=== PATIENT | female | born 1985 | race Caucasian/White ===

== ENCOUNTER 2016-06-11 15:38 | Emergency (ER) | payer BC, OTHER ==
[2016-06-11 15:40] VITALS: BP 123/77; PULSE 101; RESP 16; TEMP 98.2; O2SAT 98
--- NOTE | 2016-06-11 17:32 | PD ---
HPI Chief Complaint: ENT Complaint Time Seen by Provider: 17:32 Travel History International Travel<30 days: No Contact w/Intl Traveler<30days: No Traveled to known affect area: No History of Present Illness HPI 30-year-old female presents to the ED for evaluation of 3 day history of sore throat, clear rhinorrhea, occasional nonproductive cough, subjective fevers. Patient denies ear pain, headache, chest pain, shortness of breath, abdominal pain, nausea or vomiting. She endorses several sick contacts at work. Denies chronic health problems, takes no daily medications. Allergic to penicillin. PFSH Past Medical History ?: Not : 1 Para: 1 Miscarriage: 0 : 0 Social History Alcohol Use: Yes (4 GLASSES OF LIQOUR ONCE EVERY 3 WEEKS) Tobacco Use: No Substance Use: No Allergies-Medications (Allergen,Severity, Reaction): Coded Allergies: Penicillin (Verified Allergy, Intermediate, Hives, 06/11/16) Reported Meds & Prescriptions Reported Meds & Active Scripts Active Azithromycin 250 Mg Tab 250 Mg PO DIRECTED Take 2 tabs (500 mg) on day 1 then 1 tab daily x 4 days. Review of Systems Except as stated in HPI: all other systems reviewed are Neg Physical Exam Narrative GENERAL: Well-nourished, well-developed SKIN: Warm and dry. HEAD: Normocephalic. Atraumatic. EYES: No scleral icterus. No injection or drainage. PERRLA. EOMI. ENT: Pearly calixto tympanic membranes bilaterally. Nasal mucosa is moist. Oropharynx with mild erythema, scattered white exudates. Tonsils 1+ bilaterally. Uvula midline. Floor of the mouth is soft. NECK: Supple, trachea midline. No JVD. Bilateral submandibular tender lymphadenopathy. CARDIOVASCULAR: Regular rate and rhythm without murmurs, gallops, or rubs. 2+ DP and radial pulses bilaterally. RESPIRATORY: Breath sounds clear and equal bilaterally. No accessory muscle use. GASTROINTESTINAL: Abdomen soft, non-tender, nondistended. + Bowel sounds MUSCULOSKELETAL: No cyanosis, or edema. The patient is ambulatory and moves extremities spontaneously. BACK: Nontender without obvious deformity. No CVA tenderness. Data Data Last Documented VS Vital Signs Date Time Temp Pulse Resp B/P Pulse Ox O2 Delivery O2 Flow Rate FiO2 06/11/16 15:40 98.2 101 16 123/77 98 Orders Group A Rapid Strep Screen (06/11/16 17:37) Azithromycin (Zithromax) (06/11/16 17:45) Strep Culture (Group A) (06/11/16 17:45) [facility] Medical Decision Making Medical Screen Exam Complete: Yes Emergency Medical Condition: Yes Differential Diagnosis Pharyngitis versus group A strep pharyngitis versus viral syndrome versus URI versus other Narrative Course 30-year-old female presents to the ED for evaluation of 3 day history of sore throat, clear rhinorrhea, occasional nonproductive cough, subjective fevers. Patient denies ear pain, headache, chest pain, shortness of breath, abdominal pain, nausea or vomiting. She endorses several sick contacts at work. Vitals reviewed. Physical exam reveals erythema and scattered exudates of the posterior oropharynx. Tonsils 1+ bilaterally. Tender bilateral submandibular lymphadenopathy. Physical exam is unremarkable. Rapid strep swab was obtained and is pending. Patient meets center criteria. We'll treat for strep pharyngitis. Patient is allergic to penicillin, we'll prescribe a Z-Toan. First dose administered in the ED. Patient is instructed take all medication as prescribed, continue with symptomatic treatment, follow-up with primary care or ENT. She indicated understanding of instructions, is amenable to plan of care. She is stable and discharged home. Diagnosis Primary Impression: Strep pharyngitis Referrals: Primary Care Physician Patient Instructions: General Instructions, Strep Throat (ED) Additional Instructions: Rest, hydrate. Continue taking Tylenol or ibuprofen as needed for fever. Take azithromycin as directed. Follow-up with an ear nose and throat doctor or your primary care provider next week. Return to the ED for any urgent or emergent medical condition. Med/Other Pt SpecificInfo: Prescription(s) given Scripts Azithromycin 250 Mg [id number] Mg PO DIRECTED #6 TAB Ref 0 Take 2 tabs (500 mg) on day 1 then 1 tab daily x 4 days. Prov:Kendra Cardona MD 06/11/16 Disposition: 01 DISCHARGE HOME Condition: Stable Candida Lilly Jun 11, 2016 17:32
[2016-06-11] MEDS ORDERED: AZIT250T3 PO (17:44)
[2016-06-11] MEDS ORDERED: AZITHROMYCIN 250 MG TAB PO ONE (17:45)
== END 2016-06-11 18:08 | disposition home or self-care (01) ==
LOC: NETRI 15:38
DX: J02.0 Streptococcal pharyngitis (principal); Z88.0 Allergy status to penicillin
CPT/HCPCS: 87081; 87880; 99283

== ENCOUNTER 2017-04-03 13:16 | Emergency (ER) | payer BC, MEDICAID ==
[~2017-04-03 13:16] MED LIST: AZIT250T3 PO
[2017-04-03 13:40] VITALS: BP 127/70; PULSE 104
--- NOTE | 2017-04-03 13:58 | PD ---
HPI Chief Complaint 28 weeks and 6 days Abdominal pain s/p hit by door Date Seen: Apr 03, 2017 Time Seen: 13:45 Travel History International Travel<30 Days: No Contact w/Intl Traveler<30Days: No Known Affected Area: No History of Present Illness HPI Pt is a 31 yo at 28 weeks and 6 days . Pt presents after being hit hard accidently in the abdomen by a door. Pt reports pain maximal in periumbilical area. Tender to touch, and worse with movement. Declines any analgesia. Active movements. No vaginal bleeding or leaking. Weeks Gestation: 28 Para: 3 : 5 History Past Medical History Medical History: Denies Significant Hx Obstetric History Obstetric History 3 prior term uncomplicated pregnancies, delivered vaginally. Past Surgical History Surgical History: No Previous Surgery Family History Family History: Negative Social History Alcohol Use: No Tobacco Use: No Substance Abuse: No Allergies-Medications (Allergen,Severity, Reaction): Coded Allergies: penicillin G (Unverified Allergy, Intermediate, Hives, 01/05/17) Home Meds Active Scripts Azithromycin (Azithromycin) 250 Mg Tab, 250 MG PO DIRECTED for Infection, #6 TAB 0 Refills Take 2 tabs (500 mg) on day 1 then 1 tab daily x 4 days. Prov:Kendra Cardona MD 06/11/16 Review of Systems Except as stated in HPI: all other systems reviewed are Neg Physical Exam Narrative GENERAL: Well-nourished, well-developed patient. SKIN: Warm and dry. HEAD: Normocephalic and atraumatic. EYES: No scleral icterus. No injection or drainage. ENT: No nasal drainage noted. Mucous membranes pink. Airway patent. NECK: Supple, trachea midline. No JVD. CARDIOVASCULAR: Regular rate and rhythm without murmurs, gallops, or rubs. RESPIRATORY: Breath sounds equal bilaterally. No accessory muscle use. BREASTS: Bilateral exam showed no masses , no retractions, no nipple discharge. ABDOMEN/GI: Abdomen soft, tender in periumbilical area, bowel sounds present, no rebound, no guarding Gravid to [36] weeks size Fundal Height: [36] GENITOURINARY: External Genitalia: intact and normal in appearance BUS glands: [-] Cervix: [-] Dilatation: [-] Effacement: [-] Station: [-] Presentation: [-] Membranes: [intact] Uterine Contractions: [none] FHT's: Category: [1] Baseline: [130s] Reactive: [-] Variability: [good] Decels: [none] EXTREMITIES: No cyanosis or edema. BACK: Nontender without obvious deformity. No CVA tenderness. NEUROLOGICAL: Awake and alert. Motor and sensory grossly within normal limits. Five out of 5 muscle strength in all muscle groups. Normal speech. Data Data Vital Signs Reviewed: Yes Orders Orders Vital Signs (Adult) .ON ADMISSION (04/03/17 13:41) ^ Labor Status (04/03/17 13:41) Diet Liquid (04/03/17 Lunch) Us Ob Limited (04/03/17 ) MDM Medical Record Reviewed: Yes Plan 30 yo at 28 weeks and 6 days, Presents with periumbilical abdominal pain after being hit on abdomen with a door. No uterine contractions. Abdomen is soft. Cat 1 FHR No vaginal bleeding. Will obtain limited OB ultrasound. Extended heart rate monitoring. FHR remains cat 1, no contractions. US is wnl, without any evidence of abruption. However there is size/date discrepancy. Measurements are symmetrical , current measurement is about 36 weeks. Pt has scheduled ultrasound with Dr Anaya on 04/08/2017 for uterine size/ date discrepancy. Diagnosis Diagnosis: Primary Impression: 28 weeks gestation of Additional Impressions: Blunt trauma of abdominal wall Abdominal pain affecting Uterine size-date discrepancy Disposition: 01 DISCHARGE HOME Condition: Good Lorenzo De Souza MD Apr 03, 2017 13:58
[2017-04-03 14:00] VITALS: RESP 18
[2017-04-03 14:30] VITALS: RESP 17
== END 2017-04-03 15:56 | disposition home or self-care (01) ==
LOC: HOBED 13:16
DX: O9A.213 Injury, poisoning and certain other consequences of external causes complicating pregnancy, third trimester (principal); S39.91XA Unspecified injury of abdomen, initial encounter; W22.8XXA Striking against or struck by other objects, initial encounter; O26.893 Other specified pregnancy related conditions, third trimester; R10.9 Unspecified abdominal pain; O26.843 Uterine size-date discrepancy, third trimester; Z3A.28 28 weeks gestation of pregnancy
CPT/HCPCS: 76816; 99284

== ENCOUNTER 2017-04-30 01:15 | Emergency (ER) | payer BC, MEDICAID ==
[2017-04-30 01:35] VITALS: BP 108/68; PULSE 103; RESP 18; TEMP 97.9
--- NOTE | 2017-04-30 01:46 | PD ---
HPI Chief Complaint ? ctx Date Seen: Apr 30, 2017 Time Seen: 01:35 Travel History International Travel<30 Days: No Contact w/Intl Traveler<30Days: No Known Affected Area: No History of Present Illness HPI Pt is a 31y/o @ 37.3wks. She has PNC with Dr. Anaya. She presents to the hospital for ctx. She states that they were one per hour and increased to 2 per hour. She came in because, "I aint gonna feel no pain". She denies LOF or VB. +FM. Weeks Gestation: 37 Para: 3 : 5 History Past Medical History Medical History: Denies Significant Hx Obstetric History Obstetric History x3 SAB x1 Past Surgical History Narrative Surgical wisdom teeth extraction Family History Family History: Negative Social History Alcohol Use: No Tobacco Use: No Substance Abuse: No Allergies-Medications (Allergen,Severity, Reaction): Coded Allergies: penicillin G (Unverified Allergy, Intermediate, Hives, 01/05/17) Home Meds Active Scripts Azithromycin (Azithromycin) 250 Mg Tab, 250 MG PO DIRECTED for Infection, #6 TAB 0 Refills Take 2 tabs (500 mg) on day 1 then 1 tab daily x 4 days. Prov:Kendra Cardona MD 06/11/16 Review of Systems Except as stated in HPI: all other systems reviewed are Neg Physical Exam Narrative General: well developed, well nourished, no acute distress HEENT: normocephalic atraumatic, extraocular movements intact, neck supple Abdomen: soft, gravid, nontender, nondistended Uterus: fundus term Extremities: full range of motion Skin: normal coloration, no rashes, no suspicious skin lesions noted Neurologic: cranial nerves 2-12 grossly intact, normal muscle tone, normal gait Psychiatric: normal mood and affect, appropriate FHTs: 130s, +accels no decels, moderate variability, reactive [place]: quiet Cvx: 2/70/-3 (was 2cm at office visit last week) Data Data Vital Signs Reviewed: Yes Orders Orders Vital Signs (Adult) .ON ADMISSION (04/30/17 01:34) ^ Labor Status (04/30/17 01:34) Urinalysis - C+S If Indicated (04/30/17 01:34) ^ Non Stress Test (04/30/17 01:34) MDM Plan 31y/o @ 37.3wks with ctx. -- toco without any ctx -- pt reports q30m -- FHTs cat 1 -- cvx 2cm (unchanged from clinic check 1wk ago) Dispo: stable for d/c home; pt counseled that ctx should be q5m lasting more than an hour to be concerning for labor Diagnosis Diagnosis: Primary Impression: 37 weeks gestation of Additional Impression: False labor after 37 weeks of gestation without delivery Patient Instructions: General Instructions Departure Forms: Tests/Procedures Soumya Aviles MD Apr 30, 2017 01:46
== END 2017-04-30 02:05 | disposition home or self-care (01) ==
LOC: HOBED 01:15
DX: O47.1 False labor at or after 37 completed weeks of gestation (principal); Z3A.37 37 weeks gestation of pregnancy; Z88.0 Allergy status to penicillin
CPT/HCPCS: 99283

== ENCOUNTER 2017-05-11 21:08 | Inpatient (IN) | payer BC, MEDICAID ==
[~2017-05-11] VITALS: Ht 172.7 cm; Wt 102.3 kg
[2017-05-11] VITALS (36 sets, daily range): BP systolic 98–134; BP diastolic 41–76; PULSE 96–148; RESP 16; TEMP 97.6
--- NOTE | 2017-05-11 21:38 | PD ---
HPI Chief Complaint Leaking of fluid Travel History International Travel<30 Days: No Contact w/Intl Traveler<30Days: No Known Affected Area: No History of Present Illness HPI 31-year-old , IUP at 39.0 care complicated by history of ventral hernia, remote history of chlamydia, obesity This patient presents complaining of a large gush of clear fluid at 8:50 PM tonight. She reports she's been leaking ever since. She reports some irregular contractions but these are not in any regular pattern and not painful. She reports good movement. She denies any vaginal bleeding. Weeks Gestation: 39 Para: 3 : 5 Miscarriage: 1 History Past Medical History Narrative Medical Obesity Obstetric History Obstetric History 013 3 SAB 1 Past Surgical History Surgical History: No Previous Surgery Family History Family History: Negative Social History Alcohol Use: No Tobacco Use: No Substance Abuse: No Allergies-Medications (Allergen,Severity, Reaction): Coded Allergies: penicillin G (Unverified Allergy, Intermediate, Hives, 01/05/17) Home Meds Active Scripts Azithromycin (Azithromycin) 250 Mg Tab, 250 MG PO DIRECTED for Infection, #6 TAB 0 Refills Take 2 tabs (500 mg) on day 1 then 1 tab daily x 4 days. Prov:Kendra Cardona MD 06/11/16 Review of Systems Except as stated in HPI: all other systems reviewed are Neg Physical Exam Narrative GENERAL: Well-nourished, well-developed patient. SKIN: Warm and dry. HEAD: Normocephalic and atraumatic. EYES: No scleral icterus. No injection or drainage. ENT: No nasal drainage noted. Mucous membranes pink. Airway patent. NECK: Supple, trachea midline. No JVD. CARDIOVASCULAR: Regular rate and rhythm without murmurs, gallops, or rubs. RESPIRATORY: Breath sounds equal bilaterally. No accessory muscle use. BREASTS: Bilateral exam showed no masses , no retractions, no nipple discharge. ABDOMEN/GI: Abdomen soft, non-tender, bowel sounds present, no rebound, no guarding Gravid GENITOURINARY: External Genitalia: intact and normal in appearance. Grossly normal BUS glands. No cervical or vaginal masses are noted. Patient is grossly ruptured. SVE 3-4, 80, -2, posterior FHT's: heart tones are in the 120s to 130s with moderate long-term variability, good accelerations, no decelerations. The category 1 heart rate tracing EXTREMITIES: No cyanosis or edema. BACK: Nontender without obvious deformity. No CVA tenderness. NEUROLOGICAL: Awake and alert. Motor and sensory grossly within normal limits. Five out of 5 muscle strength in all muscle groups. Normal speech. Psychiatric: Grossly normal memory and affect Musculoskeletal: Grossly normal range of motion, gait, muscle strength MDM Plan Assessment/plan: 1. IUP at 39.0 weeks 2. Rupture of membranes: No evidence of active labor at this time although patient is having contractions and is dilated to 3-[address] Desai. 3. GBS negative 4. well-being: Reassuring testing with reactive NST and category 1 heart rate tracing. We'll continue to monitor 5. Obesity 6. Remote history of chlamydia Judi Delgadillo MD May 11, 2017 21:38
[2017-05-11] MEDS ORDERED: LACTATED RINGER'S 1000 ML INJ 1,000 ML IV SCH (21:51)
[2017-05-11] MEDS ORDERED: LACTATED RINGER'S 1000 ML INJ 1,000 ML IV PRN (21:51)
[2017-05-11] MEDS ORDERED: LIDOCAINE HCL 1% 50 ML VIAL I-DERMAL PRN (22:00)
[2017-05-11] MEDS ORDERED: LIDOCAINE HCL 1% 50 ML VIAL INFIL PRN (22:00)
[2017-05-11] MEDS ORDERED: MINERAL OIL 10 ML VIAL TOPICAL PRN (22:00)
[2017-05-11] MEDS ORDERED: SODIUM CHLORID 0.9% 500 ML INJ 500 ML IV PRN (22:00)
[2017-05-11] MEDS ORDERED: CITRIC ACID-SODIUM CITRATE LIQ 30 ML UDC PO SCH (22:00)
[2017-05-11] MEDS ORDERED: OXYTOCIN 30 UNITS-500ML PREMIX 500 ML IV ONE (22:00)
[2017-05-11] MEDS ORDERED: SODIUM CHLOR 0.9% 1000 ML INJ 1,000 ML IV PRN (22:11)
[2017-05-11 22:29] LABS: BACTERIA, URINE RARE /hpf; BLOOD, URINE NEG (NEG); COMMENT (UR) CULT NOT INDICATED; CULTURE IF INDICATED CULT NOT INDICATED; GLUCOSE,URINE NEG (NEG); KETONE, URINE NEG (NEG); MUCUS URINE FEW /lpf (OCC); NITRITE,URINE NEG (NEG); SQUAMOUS EPITHELIAL CELL URINE 20 /hpf (0-5); URINE COLOR YELLOW (YELLW/STRAW)
[2017-05-11 22:30] LABS: AUTOMATED NEUTROPHIL # 12.5 TH/MM3 (1.8-7.7); BASOPHIL % 0.2 % (0.0-2.0); EOSINOPHIL # 0.1 TH/MM3 (0-0.4); EOSINOPHIL % 0.9 % (0.0-4.0); HEMATOCRIT 32.9 % (35.0-46.0); HEMO FLAGS DIFF FINAL; LYMPH % 13.4 % (9.0-44.0); LYMPHOCYTE # 2.1 TH/MM3 (1.0-4.8); MEAN CELL VOLUME 86.3 FL (80.0-100.0); MEAN CORPUSCULAR HEMOGLOBIN 28.7 PG (27.0-34.0); MEAN CORPUSCULAR HGB CONC 33.2 % (32.0-36.0); MONO % 6.4 % (0.0-8.0); NEUT % 79.1 % (16.0-70.0); PLATELET COUNT 207 TH/MM3 (150-450); RED BLOOD COUNT 3.81 MIL/MM3 (4.00-5.30); RED CELL DISTRIBUTION WIDTH 14.2 % (11.6-17.2); WHITE BLOOD COUNT 15.8 TH/MM3 (4.0-11.0)
[2017-05-11] MEDS ORDERED: OXYTOCIN 30 UNITS-500ML PREMIX 500 ML IV SCH (22:30)
[2017-05-11] MEDS ORDERED: fentaNYL 2MCG-BUPIV 0.125% INJ 100 ML ONE (23:10)
[2017-05-11] MEDS ORDERED: ePHEDrine/NS 25 MG/5 ML SYRINGE ONE (23:10)
[2017-05-12] VITALS (84 sets, daily range): BP systolic 99–126; BP diastolic 52–96; PULSE 54–191; RESP 14–20; TEMP 97.6–99.8
[2017-05-12] MEDS ORDERED: fentaNYL 2MCG-BUPIV 0.125% 100 ML EPIDURAL SCH (00:15)
[2017-05-12] MEDS ORDERED: NO SYSTEM NARCOTICS PRN (00:15)
[2017-05-12] MEDS ORDERED: ePHEDrine/NS 25 MG/5 ML SYRINGE IV PUSH PRN (00:15)
[2017-05-12] MEDS ORDERED: DO NOT ADMINISTER ANTICOAGULANTS PRN (00:15)
[2017-05-12] MEDS ORDERED: MISOPROSTOL 100 MCG TAB ONE (05:38)
--- NOTE | 2017-05-12 05:45 | PD.OB.DELI ---
Weeks gestation: 39 Pt started active labor?: Yes Medical induction of labor?: No Artificial rupture of membrane: No Anesthesia: Epidural Episiotomy: None Vaginal Delivery: Normal Presentation: Occiput posterior Nuchal Cord: Other (body cord delivered through) Delayed cord clamping (45 sec): Yes Infant: Male, Single Delivery date: May 12, 2017 Delivery time: 05:31 One Minute : 9 Five Minute : 9 Weight: 8#5oz Placenta: Spontaneous delivery, Intact, 3 vessel cord, Other (true knot in cord ) Laceration: No lacerations Estimated blood loss: 200 mL Additional Information due to multiparous status prophylactic misoprostol 600mcg placed rectally to help decrease PPH risk Bridget Desai MD May 12, 2017 05:45
[2017-05-12] MEDS ORDERED: ACETAMINOPHEN 325 MG TAB PO PRN (06:00)
[2017-05-12] MEDS ORDERED: OXYTOCIN 30 UNITS-500ML PREMIX 500 ML IV SCH (06:00)
[2017-05-12] MEDS ORDERED: oxyCODONE/ACETAMINOPHEN 5 MG/325 MG TAB PO PRN (06:00)
[2017-05-12] MEDS ORDERED: ONDANSETRON ODT 4 MG TAB PO PRN (06:00)
[2017-05-12] MEDS ORDERED: SODIUM CHLORIDE 0.9% FLUSH 10 ML FLUSH IV FLUSH PRN (06:00)
[2017-05-12] MEDS ORDERED: ZOLPIDEM TARTRATE 5 MG TAB PO PRN (06:00)
[2017-05-12] MEDS ORDERED: ALUMINUM/MAGNESIUM/SIMETH 30 ML CUP PO PRN (06:00)
[2017-05-12] MEDS: DOCUSATE SODIUM 50 MG/SENNA 8.6 MG TAB PO PRN ×2 (08:27→20:31)
[2017-05-12] MEDS: BENZOCAINE 20% TOPICAL SPRAY 60 ML CAN TOPICAL PRN (08:27)
[2017-05-12] MEDS: WITCH HAZEL 50%/GLYCERIN 12.5% 40 PAD JAR TOPICAL PRN ×2 (08:27→20:20)
[2017-05-12] MEDS: IBUPROFEN 800 MG TAB PO PRN ×2 (08:28→16:44)
[2017-05-12] MEDS ORDERED: SODIUM CHLORIDE 0.9% FLUSH 10 ML FLUSH IV FLUSH SCH (09:00)
[2017-05-12] MEDS ORDERED: MEASLES, MUMPS, RUBELLA VACCINE 0.5 ML VIAL SQ ONE (16:00)
[2017-05-12] MEDS ORDERED: DIPHTH/TETANUS/ACEL PERTUSSIS (BOOSTER) 0.5 ML VIAL/PFS IM ONE (16:00)
[2017-05-12] MEDS ORDERED: PRAMOXINE 1% RECTAL FOAM 15 GM CAN RECTAL PRN (17:00)
[2017-05-12] MEDS: HYDROCORT-PRAMOX 2.5%-1% CREAM 30 APPLIC/30 GM TUBE RECTAL PRN (20:20)
[2017-05-13] MEDS: IBUPROFEN 800 MG TAB PO PRN ×3 (00:39→20:00)
[2017-05-13] MEDS: oxyCODONE/ACETAMINOPHEN 5 MG/325 MG TAB PO PRN (07:03)
[2017-05-13 08:00] VITALS: BP 105/69; PULSE 76; RESP 16; TEMP 97.6
--- NOTE | 2017-05-13 11:41 | HHI.OB ---
Subjective Post Day: 1 Remarks mom and baby doing well baby did have pneumo thorax Objective Vitals/I&O Vital Signs Date Time Temp Pulse Resp B/P (MAP) Pulse Ox O2 Delivery O2 Flow Rate FiO2 05/13/17 08:00 97.6 76 16 105/69 (81) 05/12/17 20:20 98.0 83 18 05/12/17 20:20 111/65 (80) 05/12/17 17:10 98.2 05/12/17 17:10 97 18 116/70 (85) 05/12/17 14:43 87 108/59 (75) 05/12/17 14:43 98.6 18 Objective Remarks GENERAL: Well-nourished, well-developed patient. CARDIOVASCULAR: Regular rate and rhythm without murmurs, gallops, or rubs. RESPIRATORY: Breath sounds equal bilaterally. No accessory muscle use. ABDOMEN/GI: Abdomen soft, non-tender. Fundus: Firm, non-tender at umbilicus. GENITOURINARY: Light to moderate bleeding. EXTREMITIES: No cyanosis or edema, non-tender, without signs of DVT. Medications and IVs Current Medications Medications (Trade) Dose Ordered Sig/Seng Route Start Time Stop Time Status Last Admin (NS Flush) 2 ml BID IV FLUSH 05/12/17 09:00 (NS Flush) 2 ml UNSCH PRN IV FLUSH 05/12/17 06:00 (Tylenol) 650 mg Q4H PRN PO 05/12/17 06:00 (Motrin) 800 mg Q8H PRN PO 05/12/17 06:00 05/13/17 10:17 (Percocet 5-325 Mg) 1 tab Q4H PRN PO 05/12/17 06:00 05/13/17 07:03 (Percocet 5-325 Mg) 2 tab Q4H PRN PO 05/12/17 06:00 (Americaine 20% Top Spr) 1 spray Q4H PRN TOPICAL 05/12/17 06:00 05/12/17 08:27 (Tucks Pads) 1 applic QID PRN TOPICAL 05/12/17 06:00 05/12/17 20:20 (Sofía-Colace) 2 tab Q12H PRN PO 05/12/17 06:00 05/12/17 20:31 (Ambien) 5 mg HS PRN PO 05/12/17 06:00 (Mag-Al Plus Susp Liq) 15 ml Q8H PRN PO 05/12/17 06:00 (Zofran Odt) 4 mg Q6H PRN PO 05/12/17 06:00 (Analpram Hc Cream) 1 applic QID PRN RECTAL 05/12/17 19:00 05/12/17 20:20 Assessment/Plan Assessment and Plan mom and baby well after spontaneous pneumothorax not ready for discharge per NICU needs circ also Josie Anaya MD May 13, 2017 11:41
[2017-05-13] MEDS: WITCH HAZEL 50%/GLYCERIN 12.5% 40 PAD JAR TOPICAL PRN (14:14)
[2017-05-13 20:00] VITALS: BP 126/71; PULSE 75; RESP 18; TEMP 97.9; O2SAT 98
[2017-05-14] MEDS: oxyCODONE/ACETAMINOPHEN 5 MG/325 MG TAB PO PRN (02:28)
[2017-05-14] MEDS: IBUPROFEN 800 MG TAB PO PRN (05:36)
--- NOTE | 2017-05-14 07:45 | HHI.OB ---
Subjective Post Day: 2 Remarks Doing very well circumcision last night nursing desires BTL Objective Vitals/I&O Vital Signs Date Time Temp Pulse Resp B/P (MAP) Pulse Ox O2 Delivery O2 Flow Rate FiO2 05/13/17 20:00 97.9 05/13/17 20:00 75 18 126/71 (89) 98 05/13/17 08:00 97.6 76 16 105/69 (81) Objective Remarks GENERAL: Well-nourished, well-developed patient. CARDIOVASCULAR: Regular rate and rhythm without murmurs, gallops, or rubs. RESPIRATORY: Breath sounds equal bilaterally. No accessory muscle use. ABDOMEN/GI: Abdomen soft, non-tender. Fundus: Firm, non-tender at umbilicus. GENITOURINARY: Light to moderate bleeding. EXTREMITIES: No cyanosis or edema, non-tender, without signs of DVT. Medications and IVs Current Medications Medications (Trade) Dose Ordered Sig/Seng Route Start Time Stop Time Status Last Admin (NS Flush) 2 ml BID IV FLUSH 05/12/17 09:00 (NS Flush) 2 ml UNSCH PRN IV FLUSH 05/12/17 06:00 (Tylenol) 650 mg Q4H PRN PO 05/12/17 06:00 (Motrin) 800 mg Q8H PRN PO 05/12/17 06:00 05/14/17 05:36 (Percocet 5-325 Mg) 1 tab Q4H PRN PO 05/12/17 06:00 05/14/17 02:28 (Percocet 5-325 Mg) 2 tab Q4H PRN PO 05/12/17 06:00 (Americaine 20% Top Spr) 1 spray Q4H PRN TOPICAL 05/12/17 06:00 05/12/17 08:27 (Tucks Pads) 1 applic QID PRN TOPICAL 05/12/17 06:00 05/13/17 14:14 (Sofía-Colace) 2 tab Q12H PRN PO 05/12/17 06:00 05/12/17 20:31 (Ambien) 5 mg HS PRN PO 05/12/17 06:00 (Mag-Al Plus Susp Liq) 15 ml Q8H PRN PO 05/12/17 06:00 (Zofran Odt) 4 mg Q6H PRN PO 05/12/17 06:00 (Analpram Hc Cream) 1 applic QID PRN RECTAL 05/12/17 19:00 05/12/17 20:20 Assessment/Plan Assessment and Plan mom and baby well after spontaneous pneumothorax not ready for discharge per NICU needs circ also 05/14/17 Ready for discharge RTO 4 weeks to schedule BTL counseled Josie Anaya MD May 14, 2017 07:45
[2017-05-14] MEDS ORDERED: IBUP1TAB7 PO (07:47)
--- NOTE | 2017-05-14 07:48 | HHI.DCPOC ---
Discharge Care Plan Report Symptoms to Your Doctor -Temperature above 100.5 degrees -Redness, of incision or excessive or foul smelling drainage -Unusual pain or calf pain -Increased vaginal bleeding -Painful or difficulty urinating -Feelings of extreme sadness or anxiety after 2 weeks Goals to Promote Your Health * To prevent worsening of your condition and complications * To maintain your health at the optimal level Directions to Meet Your Goals Take your medications as prescribed Follow your dietary instruction Follow activity as directed Ensure plenty of rest for recovery Drink fluids for hydration Keep your appointments as scheduled Take your immunizations and boosters as scheduled If your symptoms worsen call your PCP, if no PCP go to Urgent Care Center or Emergency Room Smoking is Dangerous to Your Health. Avoid second hand smoke Call the 24-hour crisis hotline for domestic abuse at Josie Anaya MD May 14, 2017 07:47
[2017-05-14 08:00] VITALS: BP 106/56; PULSE 69; RESP 16; TEMP 98.1; O2SAT 97
[2017-05-14] MEDS: BENZOCAINE 20% TOPICAL SPRAY 60 ML CAN TOPICAL PRN (09:52)
[2017-05-14] MEDS: HYDROCORT-PRAMOX 2.5%-1% CREAM 30 APPLIC/30 GM TUBE RECTAL PRN (09:53)
[2017-05-14] MEDS ORDERED: HYDROCORT-PRAMOX 2.5%-1% CREAM 30 APPLIC/30 GM TUBE TOPICAL SCH (14:00)
== END 2017-05-14 10:26 | disposition home or self-care (01) | DRG 775 ==
LOC: HOBED 21:08 → H2EB 21:46 → H1EA 05-12 08:05
PROVIDERS: ADMIT Obstetrics & Gynecology; ATTEND Obstetrics & Gynecology
PROC: 10E0XZZ Delivery of Products of Conception, External Approach (ICD-10-PCS; principal; 2017-05-12)
DX: O99.62 Diseases of the digestive system complicating childbirth (principal); E66.9 Obesity, unspecified; O99.213 Obesity complicating pregnancy, third trimester; Z37.0 Single live birth; Z68.34 Body mass index [BMI] 34.0-34.9, adult; Z3A.39 39 weeks gestation of pregnancy; O69.2XX0 Labor and delivery complicated by other cord entanglement, with compression, not applicable or unspecified; K43.9 Ventral hernia without obstruction or gangrene
CPT/HCPCS: 59025; 80307; 81001; 85025; J2590; J7120